=== PATIENT | male | born 1960 | race African-American/Black ===

== ENCOUNTER 2020-06-12 16:14 | Emergency (ER) | payer OTHER ==
[~2020-06-12] VITALS: Ht 170.2 cm; Wt 48.2 kg
[2020-06-12] MEDS ORDERED: ACET-66 PO (16:38)
[2020-06-12] MEDS ORDERED: IBUP-1506 PO (16:38)
[2020-06-12] MEDS ORDERED: OXCA300T57 PO (16:38)
[2020-06-12] MEDS ORDERED: DULO-8 PO (16:38)
[2020-06-12] MEDS ORDERED: OMEP20 PO (16:38)
[2020-06-12] MEDS ORDERED: TIOT185 IH (16:39)
[2020-06-12] MEDS ORDERED: MEGE40 PO (16:39)
[2020-06-12] MEDS ORDERED: BACL10TA PO (16:39)
[2020-06-12] MEDS ORDERED: ERGO500054 PO (16:39)
[2020-06-12] MEDS ORDERED: TRAZ-252 PO (16:39)
[2020-06-12] MEDS ORDERED: OXCA300O3 PO (16:39)
[2020-06-12] MEDS ORDERED: FLUT16H NASAL (16:39)
[2020-06-12] MEDS ORDERED: ALBU8HFA IH (16:39)
[2020-06-12] MEDS ORDERED: MELO-107 PO (16:39)
[2020-06-12] MEDS ORDERED: GABA-1181 PO (16:39)
[2020-06-12] MEDS ORDERED: TAMS-13 PO (16:39)
[2020-06-12 17:01] LABS: BASOPHILS % (AUTO) 0.9 % (0.0-2.0); EOSINOPHILS % (AUTO) 3.4 % (1.0-6.0); HEMATOCRIT 38.5 % (41-53); HEMOGLOBIN 12.8 g/dL (13.5-17.5); LYMPHOCYTES # (AUTO) 2.4 K/uL (1.0-4.8); LYMPHOCYTES % (AUTO) 31.8 % (22.0-44.0); MEAN CORPUSCULAR HEMOGLOBIN 31.5 pg (26.0-34.0); MEAN CORPUSCULAR HGB CONC 33.2 G/dL (31.0-37.0); MEAN CORPUSCULAR VOLUME 95 fL (80-100); MONOCYTES # (AUTO) 0.6 K/uL (0.1-1.0); MONOCYTES % (AUTO) 7.4 % (2.0-9.0); NEUTROPHILS # (AUTO) 4.3 K/uL (1.8-7.7); NEUTROPHILS % (AUTO) 56.5 % (40.0-70.0); PLATELET COUNT (AUTO) 195 K/uL (150-450); RED BLOOD CELL COUNT(AUTO) 4.06 MIL/uL (4.50-5.90)
[2020-06-12 17:20] LABS: ANION GAP 6 mmol/L (8-16); CALCIUM, TOTAL 9.2 mg/dL (8.8-10.5); CARBON DIOXIDE 27 mmol/L (22-29); CHLORIDE 102 mmol/L (98-107); CREATININE 0.99 mg/dL (0.60-1.30); GLOMERULAR FILTR. RATE CALC > 60 mL/min (>60); GLUCOSE,RANDOM 89 mg/dL (70-110); POTASSIUM 3.9 mmol/L (3.5-5.1); SODIUM SERUM 135 mmol/L (136-145); UREA NITROGEN, BLOOD 24 mg/dL (7-18)
[2020-06-12 17:25] LABS: ALANINE AMINOTRANSFERASE 29 U/L (12-78); ALKALINE PHOSPHATASE 94 U/L (46-116); ASPARTATE AMINOTRANSFERASE 18 U/L (15-37); BILIRUBIN,TOTAL 0.7 mg/dL (0.1-1.0); TOTAL PROTEIN, SERUM 7.1 g/dL (6.4-8.2)
[2020-06-12] MEDS ORDERED: MEGE400O4 PO (19:55)
[2020-06-12] MEDS ORDERED: TIOT4MIS2 IH (19:55)
[2020-06-12] MEDS ORDERED: KETOROLAC TROMETHAMINE 60 MG/2 ML VIAL IM ONE (20:00)
[2020-06-12] MEDS ORDERED: HYDROCODONE/ACETAMINOPHEN 5-325 MG TABLET PO ONE (20:00)
[2020-06-12 20:15] VITALS: BP 135/86
== END 2020-06-12 20:57 | disposition home or self-care (01) ==
LOC: EMS 16:14
DX: S39.012A Strain of muscle, fascia and tendon of lower back, initial encounter (principal); X58.XXXA Exposure to other specified factors, initial encounter; Y93.89 Activity, other specified; Y92.89 Other specified places as the place of occurrence of the external cause; Y99.8 Other external cause status
CPT/HCPCS: 36415; 71045; 80053; 84484; 85025; 93005; 96372; 99285; J1885

== ENCOUNTER 2023-01-09 10:24 | Emergency (ER) | payer OTHER ==
[~2023-01-09] VITALS: Ht 170.2 cm; Wt 56.8 kg
[~2023-01-09 10:24] MED LIST: ACET-3385 PO; ALBU18HF12 IH; BACL10TA PO; DULO-113 PO; ERGO500054 PO; FLUT16SP NASAL; GABA-1181 PO; IBUP-1506 PO; MEGE400O23 PO; MELO-381 PO; OMEP20 PO; OXCA300T70 PO; TAMS-13 PO; TIOT4MIS2 IH; TRAZ-252 PO
[2023-01-09] MEDS ORDERED: CYCLOBENZAPRINE HCL 10 MG TABLET PO ONE (11:45)
[2023-01-09] MEDS ORDERED: LIDOCAINE 5% TRANSDERMAL PATCH TD ONE (11:45)
[2023-01-09] MEDS ORDERED: KETOROLAC TROMETHAMINE 60 MG/2 ML VIAL IM ONE (11:45)
[2023-01-09 12:38] VITALS: BP 133/68
== END 2023-01-09 12:56 | disposition home or self-care (01) ==
LOC: EMS 10:24
DX: S39.012A Strain of muscle, fascia and tendon of lower back, initial encounter (principal); G89.29 Other chronic pain; F41.9 Anxiety disorder, unspecified; F32.A Depression, unspecified; J44.9 Chronic obstructive pulmonary disease, unspecified; X58.XXXA Exposure to other specified factors, initial encounter; Y93.89 Activity, other specified; Y92.89 Other specified places as the place of occurrence of the external cause; Y99.8 Other external cause status
CPT/HCPCS: 99283; 96372; J1885

== ENCOUNTER 2023-04-07 16:31 | Emergency (ER) | payer OTHER ==
[~2023-04-07] VITALS: Ht 170.2 cm; Wt 54.5 kg
[~2023-04-07 16:31] MED LIST changes: +MEGE400O17 PO; -MEGE400O23 PO
[2023-04-07 16:40] VITALS: TEMP 98.2
[2023-04-07] MEDS ORDERED: ALBU90AE2 IH (18:53)
[2023-04-07] MEDS ORDERED: CELE-84 PO (18:53)
[2023-04-07] MEDS ORDERED: CHOL100062 PO (18:53)
[2023-04-07] MEDS ORDERED: ACET325T51 PO (18:53)
[2023-04-07] MEDS ORDERED: LIDOCAINE 1% 10 ML VIAL PERC ONE (19:00)
[2023-04-07] MEDS ORDERED: PERTUSS(ACELL),DIPH,TET VAC/PF 0.5 ML SYRINGE IM. ONE (19:00)
[2023-04-07] MEDS ORDERED: NEOMYCIN/BACITRACIN/POLYMYXIN B OINTMENT PACKET TP ONE (19:00)
[2023-04-07 19:33] VITALS: BP 118/67; PULSE 85; RESP 18
== END 2023-04-07 20:29 | disposition home or self-care (01) ==
LOC: EMS 16:33
DX: S51.812A Laceration without foreign body of left forearm, initial encounter (principal); F41.9 Anxiety disorder, unspecified; J44.9 Chronic obstructive pulmonary disease, unspecified; F32.A Depression, unspecified; G89.29 Other chronic pain; Z23 Encounter for immunization; Z98.890 Other specified postprocedural states; W26.8XXA Contact with other sharp object(s), not elsewhere classified, initial encounter; Y93.89 Activity, other specified; Y92.89 Other specified places as the place of occurrence of the external cause; Y99.8 Other external cause status
CPT/HCPCS: 99283; 90715; 90471; 12001; J3490

== ENCOUNTER 2023-04-13 19:08 | Emergency (ER) | payer OTHER ==
[~2023-04-13] VITALS: Ht 170.2 cm; Wt 54.5 kg
[~2023-04-13 19:08] MED LIST changes: -ACET-3385 PO; +ACET325T51 PO; -ALBU18HF12 IH; +ALBU90AE2 IH; +CELE-84 PO; +CHOL100062 PO; -ERGO500054 PO
[2023-04-13 19:36] VITALS: BP 116/80; PULSE 68; RESP 16; TEMP 98.2
== END 2023-04-13 20:09 | disposition home or self-care (01) ==
LOC: EMS 19:09
DX: S51.812D Laceration without foreign body of left forearm, subsequent encounter (principal); F41.9 Anxiety disorder, unspecified; J44.9 Chronic obstructive pulmonary disease, unspecified; F32.A Depression, unspecified; G89.29 Other chronic pain; Z98.890 Other specified postprocedural states; Z48.02 Encounter for removal of sutures; X58.XXXD Exposure to other specified factors, subsequent encounter
CPT/HCPCS: 99281; Z7502